=== PATIENT | male | born 1955 | race Caucasian/White ===

== ENCOUNTER 2022-12-25 13:18 | Inpatient (IN) | payer MEDICARE ==
[~2022-12-25] VITALS: Ht 180.3 cm; Wt 69.0 kg
[2022-12-25] MEDS ORDERED: CARV12.5 PO (14:34)
[2022-12-25] MEDS ORDERED: LOSA50TA28 PO (14:34)
[2022-12-25] MEDS ORDERED: AMIO200T49 PO (14:34)
[2022-12-25 17:32] LABS: BASO % 0.2 % (0.0-1.0); EOS # 0.8 10^3/uL (0.0-0.5); EOS % 9.2 % (0.0-3.0); HEMATOCRIT 37.4 % (42.0-52.0); HEMOGLOBIN 12.6 g/dl (13.5-17.5); LYMPH # 1.1 10^3/uL (1.5-5.0); LYMPH % 13.5 % (24.0-44.0); MEAN CORPUSCULAR HEMOGLOBIN 30.4 pg (27.0-33.0); MEAN CORPUSCULAR HGB CONC 33.7 g/dl (32.0-36.5); MEAN CORPUSCULAR VOLUME 90.3 fl (80.0-96.0); MONO # 0.6 10^3/uL (0.0-0.8); MONO % 7.5 % (2.0-8.0); NEUTROPHILS # 5.8 10^3/uL (1.5-8.5); NEUTROPHILS % 69.1 % (36.0-66.0); PLATELET COUNT, AUTOMATED 247 10^3/uL (150-450); RED BLOOD COUNT 4.14 10^6/uL (4.30-6.10); WHITE BLOOD COUNT 8.4 10^3/uL (4.0-10.0)
[2022-12-25 17:48] LABS: INR 1.02; PROTHROMBIN TIME 13.6 SECONDS (12.5-14.5)
[2022-12-25 17:50] LABS: LIPASE 133 U/L (12-53)
[2022-12-25 17:51] LABS: AMYLASE 106 U/L (30-118)
[2022-12-25 18:10] LABS: ALBUMIN 2.8 G/DL (3.2-5.2); ALKALINE PHOSPHATASE 1190 U/L (46-116); ALT/SGPT 390 U/L (7.0-40); AST/SGOT 260 U/L (<34); BILIRUBIN,DIRECT 5.5 MG/DL (<0.4); BILIRUBIN,TOTAL 7.5 MG/DL (0.3-1.2); BLOOD UREA NITROGEN 25 MG/DL (9-23); CALCIUM LEVEL 7.8 MG/DL (8.3-10.6); CARBON DIOXIDE LEVEL 30 MMOL/L (20-31); CHLORIDE LEVEL 99 MMOL/L (98-107); CREATININE FOR GFR 1.39 MG/DL (0.70-1.30); GLOMERULAR FILTRATION RATE 54.4 (>49); GLUCOSE, FASTING 98 MG/DL (74-106); POTASSIUM SERUM 3.2 MMOL/L (3.5-5.1); SODIUM LEVEL 137 MMOL/L (136-145); TOTAL PROTEIN 6.8 G/DL (5.7-8.2)
[2022-12-25] MEDS ORDERED: NS 1,000 ML IV ONE (18:10)
[2022-12-25 18:20] LABS: PARTIAL THROMBOPLASTIN TIME 30.7 SECONDS (24.8-34.2)
[2022-12-25 19:02] LABS: HEPATITIS C VIRUS ABY INDEX 0.16 INDEX (<0.8)
[2022-12-25 19:03] LABS: HEPATITIS B CORE ANTIBODY IGM NEGATIVE (NEGATIVE)
[2022-12-25 19:08] LABS: CPK CREATINE PHOSPHOKINASE 65 U/L (46-171); FERRITIN 824.2 NG/ML (10.5-307.3); IRON (FE) 94 UG/DL (65-175); PERCENT SATURATION 36.3 % (19.7-50.0); TOTAL IRON BINDING CAPACITY 259 UG/DL (250-425); VITAMIN B12 LEVEL > 2000 PG/ML (211-911)
[2022-12-25] MEDS ORDERED: ISOVUE-370 76% 100ML VIAL As Ordered ONE (19:36)
[2022-12-25] MEDS ORDERED: PROHANCE 279.3MG/ML 15ML VIAL As Ordered ONE (21:13)
[2022-12-26] MEDS ORDERED: POTASSIUM CHLORIDE 10MEQ SR TABLET PO ONE (01:50)
[2022-12-26] MEDS ORDERED: ZINC220CA PO (02:53)
[2022-12-26] MEDS ORDERED: OXYC1TAB23 PO (02:53)
[2022-12-26] MEDS ORDERED: COQ1200C PO (02:53)
[2022-12-26] MEDS ORDERED: L-GL500T5 PO (02:53)
[2022-12-26] MEDS ORDERED: B-122500 PO (02:53)
[2022-12-26] MEDS ORDERED: VITA400C83 PO (02:53)
[2022-12-26] MEDS ORDERED: FERR325T18 PO (02:53)
[2022-12-26] MEDS ORDERED: VITA100T14 PO (02:53)
[2022-12-26] MEDS ORDERED: ASPI1TAB23 PO (02:53)
[2022-12-26] MEDS ORDERED: VITA80004 PO (02:53)
[2022-12-26] MEDS ORDERED: [UNRECOGNIZED DRUG - OTHER] PO (02:53)
[2022-12-26] MEDS ORDERED: C 50TAB PO (02:53)
[2022-12-26] MEDS ORDERED: ESSE250T PO (02:53)
[2022-12-26] MEDS ORDERED: LUTE20TA2 PO (02:53)
[2022-12-26] MEDS ORDERED: ASTA4CAP PO (02:53)
[2022-12-26] MEDS ORDERED: VITA200032 PO (02:53)
[2022-12-26] MEDS ORDERED: ARGI500T PO (02:53)
[2022-12-26] MEDS ORDERED: HOME MED LIST COMPLETE! XX SCH (02:55)
[2022-12-26] MEDS ORDERED: PERCOCET 5MG/325MG TAB PO PRN (03:00)
[2022-12-26 05:26] LABS: HEMATOCRIT 34.4 % (42.0-52.0); HEMOGLOBIN 11.7 g/dl (13.5-17.5); MEAN CORPUSCULAR HEMOGLOBIN 30.6 pg (27.0-33.0); MEAN CORPUSCULAR VOLUME 90.1 fl (80.0-96.0); PLATELET COUNT, AUTOMATED 216 10^3/uL (150-450); RED BLOOD COUNT 3.82 10^6/uL (4.30-6.10); WHITE BLOOD COUNT 9.1 10^3/uL (4.0-10.0)
[2022-12-26 05:43] LABS: INR 1.07; PROTHROMBIN TIME 14.1 SECONDS (12.5-14.5)
[2022-12-26] MEDS: HEPARIN SOD (PORCINE) 5000UNITS/ML 1ML VIAL/SYRINGE SC SCH ×3 (06:00→20:39)
[2022-12-26 06:19] LABS: ALBUMIN 2.4 G/DL (3.2-5.2); ALKALINE PHOSPHATASE 1141 U/L (46-116); ALT/SGPT 426 U/L (7.0-40); AST/SGOT 343 U/L (<34); BILIRUBIN,TOTAL 7.6 MG/DL (0.3-1.2); BLOOD UREA NITROGEN 24 MG/DL (9-23); CALCIUM LEVEL 7.4 MG/DL (8.3-10.6); CARBON DIOXIDE LEVEL 25 MMOL/L (20-31); CHLORIDE LEVEL 103 MMOL/L (98-107); CREATININE FOR GFR 1.25 MG/DL (0.70-1.30); GLOMERULAR FILTRATION RATE > 60.0 (>49); GLUCOSE, FASTING 106 MG/DL (74-106); MAGNESIUM LEVEL 1.9 MG/DL (1.8-2.4); POTASSIUM SERUM 3.1 MMOL/L (3.5-5.1); SODIUM LEVEL 139 MMOL/L (136-145)
[2022-12-26] MEDS: ASPIRIN ENTERIC 325MG TAB PO SCH (11:47)
[2022-12-26] MEDS: CARVedilol 12.5 MG TAB PO SCH ×2 (11:48→20:43)
[2022-12-26 12:17] VITALS: BP 157/68; TEMP 97.6; O2SAT 98
[2022-12-26] MEDS: LR 1,000 ML IV SCH (12:25)
[2022-12-26] MEDS: KCL 10MEQ/100ML SWI (KRUN) 10 MEQ in IV 1 EA IV SCH ×4 (12:26→16:04)
[2022-12-26 14:13] VITALS: BP 123/58; TEMP 98.8; O2SAT 100
[2022-12-26 16:35] VITALS: BP 126/81; TEMP 98.8; O2SAT 98
[2022-12-26 20:43] VITALS: BP 133/64; TEMP 98.1; O2SAT 92
[2022-12-27] MEDS: LR 1,000 ML IV SCH ×2 (01:01→06:02)
[2022-12-27] MEDS: HEPARIN SOD (PORCINE) 5000UNITS/ML 1ML VIAL/SYRINGE SC SCH ×3 (05:09→21:11)
[2022-12-27 05:15] VITALS: BP 134/65; TEMP 98.8; O2SAT 98
[2022-12-27 05:58] LABS: BASO % 0.4 % (0.0-1.0); EOS % 11.7 % (0.0-3.0); HEMATOCRIT 33.2 % (42.0-52.0); HEMOGLOBIN 10.9 g/dl (13.5-17.5); LYMPH # 1.1 10^3/uL (1.5-5.0); LYMPH % 13.5 % (24.0-44.0); MEAN CORPUSCULAR HEMOGLOBIN 30.1 pg (27.0-33.0); MEAN CORPUSCULAR HGB CONC 32.8 g/dl (32.0-36.5); MEAN CORPUSCULAR VOLUME 91.7 fl (80.0-96.0); MONO # 0.8 10^3/uL (0.0-0.8); MONO % 9.9 % (2.0-8.0); NEUTROPHILS # 5.4 10^3/uL (1.5-8.5); NEUTROPHILS % 64.1 % (36.0-66.0); PLATELET COUNT, AUTOMATED 224 10^3/uL (150-450); RED BLOOD COUNT 3.62 10^6/uL (4.30-6.10); WHITE BLOOD COUNT 8.4 10^3/uL (4.0-10.0)
[2022-12-27 06:04] LABS: INR 1.07; PROTHROMBIN TIME 14.1 SECONDS (12.5-14.5)
[2022-12-27 06:33] LABS: ALBUMIN 2.1 G/DL (3.2-5.2); ALKALINE PHOSPHATASE 1226 U/L (46-116); ALT/SGPT 428 U/L (7.0-40); AST/SGOT 291 U/L (<34); BILIRUBIN,TOTAL 7.6 MG/DL (0.3-1.2); BLOOD UREA NITROGEN 20 MG/DL (9-23); CALCIUM LEVEL 7.7 MG/DL (8.3-10.6); CARBON DIOXIDE LEVEL 26 MMOL/L (20-31); CHLORIDE LEVEL 102 MMOL/L (98-107); CREATININE FOR GFR 1.16 MG/DL (0.70-1.30); GLOMERULAR FILTRATION RATE > 60.0 (>49); GLUCOSE, FASTING 100 MG/DL (74-106); MAGNESIUM LEVEL 1.9 MG/DL (1.8-2.4); POTASSIUM SERUM 3.8 MMOL/L (3.5-5.1); SODIUM LEVEL 136 MMOL/L (136-145); TOTAL PROTEIN 5.8 G/DL (5.7-8.2)
[2022-12-27] MEDS: ASPIRIN ENTERIC 325MG TAB PO SCH (08:31)
[2022-12-27] MEDS: CARVedilol 12.5 MG TAB PO SCH ×2 (08:34→21:00)
[2022-12-27] MEDS ORDERED: LOSARTAN 50MG TABLET PO SCH (09:00)
[2022-12-27] MEDS: LOSARTAN 25 MG TAB PO SCH (11:39)
[2022-12-27 14:00] VITALS: BP 152/70; TEMP 98.1; O2SAT 99
[2022-12-27 20:00] VITALS: BP 154/70; TEMP 98.1; O2SAT 99
[2022-12-28] MEDS: HEPARIN SOD (PORCINE) 5000UNITS/ML 1ML VIAL/SYRINGE SC SCH ×3 (05:01→20:08)
[2022-12-28 06:00] VITALS: BP 155/72; TEMP 98.6; O2SAT 96
[2022-12-28 06:06] LABS: BASO % 0.4 % (0.0-1.0); HEMATOCRIT 32.7 % (42.0-52.0); HEMOGLOBIN 11.2 g/dl (13.5-17.5); LYMPH # 1.2 10^3/uL (1.5-5.0); MEAN CORPUSCULAR HEMOGLOBIN 30.7 pg (27.0-33.0); MEAN CORPUSCULAR HGB CONC 34.3 g/dl (32.0-36.5); MEAN CORPUSCULAR VOLUME 89.6 fl (80.0-96.0); MONO # 0.8 10^3/uL (0.0-0.8); MONO % 10.1 % (2.0-8.0); NEUTROPHILS # 4.6 10^3/uL (1.5-8.5); NEUTROPHILS % 60.1 % (36.0-66.0); PLATELET COUNT, AUTOMATED 231 10^3/uL (150-450); RED BLOOD COUNT 3.65 10^6/uL (4.30-6.10); WHITE BLOOD COUNT 7.7 10^3/uL (4.0-10.0)
[2022-12-28 06:19] LABS: INR 1.01; PROTHROMBIN TIME 13.5 SECONDS (12.5-14.5)
[2022-12-28 06:58] LABS: ALBUMIN 2.1 G/DL (3.2-5.2); ALKALINE PHOSPHATASE 1191 U/L (46-116); ALT/SGPT 354 U/L (7.0-40); AST/SGOT 198 U/L (<34); BILIRUBIN,TOTAL 7.4 MG/DL (0.3-1.2); BLOOD UREA NITROGEN 15 MG/DL (9-23); CALCIUM LEVEL 7.6 MG/DL (8.3-10.6); CARBON DIOXIDE LEVEL 28 MMOL/L (20-31); CHLORIDE LEVEL 102 MMOL/L (98-107); CREATININE FOR GFR 0.99 MG/DL (0.70-1.30); GLOMERULAR FILTRATION RATE > 60.0 (>49); GLUCOSE, FASTING 113 MG/DL (74-106); MAGNESIUM LEVEL 1.7 MG/DL (1.8-2.4); POTASSIUM SERUM 4.1 MMOL/L (3.5-5.1); SODIUM LEVEL 136 MMOL/L (136-145); TOTAL PROTEIN 5.7 G/DL (5.7-8.2)
[2022-12-28] MEDS: ASPIRIN ENTERIC 325MG TAB PO SCH (08:16)
[2022-12-28] MEDS: CARVedilol 12.5 MG TAB PO SCH ×2 (08:16→20:08)
[2022-12-28] MEDS: LOSARTAN 25 MG TAB PO SCH (08:16)
[2022-12-28] MEDS ORDERED: MAGNESIUM OXIDE 400MG TAB (MAG-OX) PO ONE ×2 (13:50→21:00)
[2022-12-28 14:00] VITALS: BP 157/73; TEMP 98.1; O2SAT 99
[2022-12-28 20:00] VITALS: BP 165/81; TEMP 98.1; O2SAT 95
[2022-12-29] VITALS (7 sets, daily range): BP systolic 150–160; BP diastolic 70–79; TEMP 97.9–99.1; O2SAT 96–99
[2022-12-29] MEDS: HEPARIN SOD (PORCINE) 5000UNITS/ML 1ML VIAL/SYRINGE SC SCH ×3 (05:38→21:08)
[2022-12-29 06:09] LABS: BASO % 0.4 % (0.0-1.0); EOS # 1.2 10^3/uL (0.0-0.5); EOS % 13.4 % (0.0-3.0); HEMATOCRIT 34.6 % (42.0-52.0); HEMOGLOBIN 11.5 g/dl (13.5-17.5); LYMPH # 1.9 10^3/uL (1.5-5.0); LYMPH % 20.6 % (24.0-44.0); MEAN CORPUSCULAR HEMOGLOBIN 30.1 pg (27.0-33.0); MEAN CORPUSCULAR HGB CONC 33.2 g/dl (32.0-36.5); MEAN CORPUSCULAR VOLUME 90.6 fl (80.0-96.0); MONO # 0.8 10^3/uL (0.0-0.8); MONO % 8.6 % (2.0-8.0); NEUTROPHILS # 5.1 10^3/uL (1.5-8.5); NEUTROPHILS % 56.7 % (36.0-66.0); PLATELET COUNT, AUTOMATED 243 10^3/uL (150-450); RED BLOOD COUNT 3.82 10^6/uL (4.30-6.10)
[2022-12-29 06:21] LABS: INR 0.94; PROTHROMBIN TIME 12.8 SECONDS (12.5-14.5)
[2022-12-29 07:07] LABS: ALBUMIN 2.3 G/DL (3.2-5.2); ALKALINE PHOSPHATASE 1281 U/L (46-116); ALT/SGPT 399 U/L (7.0-40); AST/SGOT 210 U/L (<34); BLOOD UREA NITROGEN 12 MG/DL (9-23); CALCIUM LEVEL 8.2 MG/DL (8.3-10.6); CARBON DIOXIDE LEVEL 29 MMOL/L (20-31); CHLORIDE LEVEL 102 MMOL/L (98-107); CREATININE FOR GFR 0.99 MG/DL (0.70-1.30); GLOMERULAR FILTRATION RATE > 60.0 (>49); GLUCOSE, FASTING 88 MG/DL (74-106); POTASSIUM SERUM 4.7 MMOL/L (3.5-5.1); SODIUM LEVEL 137 MMOL/L (136-145); TOTAL PROTEIN 6.4 G/DL (5.7-8.2)
[2022-12-29] MEDS: CARVedilol 12.5 MG TAB PO SCH ×3 (09:00→20:38)
[2022-12-29] MEDS: ASPIRIN ENTERIC 325MG TAB PO SCH (09:00)
[2022-12-29 09:24] LABS: MAGNESIUM LEVEL 1.8 MG/DL (1.8-2.4)
[2022-12-29] MEDS: LOSARTAN 50MG TABLET PO SCH (09:24)
[2022-12-29] MEDS ORDERED: MAGNESIUM OXIDE 400MG TAB (MAG-OX) PO ONE ×2 (10:25→18:00)
[2022-12-29] MEDS ORDERED: LIDOCAINE 1% MDV 20ML VIAL As Ordered ONE (14:30)
[2022-12-30 05:24] VITALS: BP 148/77; TEMP 98.4; O2SAT 97
[2022-12-30] MEDS: HEPARIN SOD (PORCINE) 5000UNITS/ML 1ML VIAL/SYRINGE SC SCH ×3 (05:58→21:17)
[2022-12-30 06:24] LABS: BASO % 0.4 % (0.0-1.0); EOS % 10.1 % (0.0-3.0); HEMATOCRIT 32.2 % (42.0-52.0); HEMOGLOBIN 10.8 g/dl (13.5-17.5); LYMPH # 1.5 10^3/uL (1.5-5.0); LYMPH % 15.3 % (24.0-44.0); MEAN CORPUSCULAR HEMOGLOBIN 30.3 pg (27.0-33.0); MEAN CORPUSCULAR HGB CONC 33.5 g/dl (32.0-36.5); MEAN CORPUSCULAR VOLUME 90.4 fl (80.0-96.0); MONO # 1.1 10^3/uL (0.0-0.8); MONO % 11.4 % (2.0-8.0); NEUTROPHILS # 6.2 10^3/uL (1.5-8.5); NEUTROPHILS % 62.5 % (36.0-66.0); PLATELET COUNT, AUTOMATED 258 10^3/uL (150-450); RED BLOOD COUNT 3.56 10^6/uL (4.30-6.10); WHITE BLOOD COUNT 9.9 10^3/uL (4.0-10.0)
[2022-12-30 07:14] LABS: ALBUMIN 2.2 G/DL (3.2-5.2); ALKALINE PHOSPHATASE 1167 U/L (46-116); ALT/SGPT 342 U/L (7.0-40); AST/SGOT 150 U/L (<34); BILIRUBIN,TOTAL 3.6 MG/DL (0.3-1.2); BLOOD UREA NITROGEN 15 MG/DL (9-23); CALCIUM LEVEL 8.3 MG/DL (8.3-10.6); CARBON DIOXIDE LEVEL 26 MMOL/L (20-31); CHLORIDE LEVEL 101 MMOL/L (98-107); GLOMERULAR FILTRATION RATE > 60.0 (>49); GLUCOSE, FASTING 92 MG/DL (74-106); MAGNESIUM LEVEL 1.8 MG/DL (1.8-2.4); POTASSIUM SERUM 4.8 MMOL/L (3.5-5.1); SODIUM LEVEL 135 MMOL/L (136-145); TOTAL PROTEIN 6.2 G/DL (5.7-8.2)
[2022-12-30] MEDS: CARVedilol 12.5 MG TAB PO SCH ×2 (08:09→21:18)
[2022-12-30] MEDS: LOSARTAN 50MG TABLET PO SCH (08:09)
[2022-12-30] MEDS: ASPIRIN ENTERIC 325MG TAB PO SCH (08:09)
[2022-12-30 14:00] VITALS: BP 132/67; TEMP 98.8; O2SAT 100
[2022-12-30 21:00] VITALS: BP 150/76; TEMP 99.1; O2SAT 99
[2022-12-31] MEDS: HEPARIN SOD (PORCINE) 5000UNITS/ML 1ML VIAL/SYRINGE SC SCH (05:08)
[2022-12-31 05:25] VITALS: BP 152/77; TEMP 98.8; O2SAT 98
[2022-12-31 06:22] LABS: BASO # 0.1 10^3/uL (0.0-0.2); BASO % 0.6 % (0.0-1.0); EOS # 0.9 10^3/uL (0.0-0.5); EOS % 10.7 % (0.0-3.0); HEMATOCRIT 31.1 % (42.0-52.0); HEMOGLOBIN 10.2 g/dl (13.5-17.5); LYMPH # 1.5 10^3/uL (1.5-5.0); LYMPH % 17.4 % (24.0-44.0); MEAN CORPUSCULAR HEMOGLOBIN 29.8 pg (27.0-33.0); MEAN CORPUSCULAR HGB CONC 32.8 g/dl (32.0-36.5); MEAN CORPUSCULAR VOLUME 90.9 fl (80.0-96.0); MONO # 1.1 10^3/uL (0.0-0.8); MONO % 12.5 % (2.0-8.0); NEUTROPHILS % 58.6 % (36.0-66.0); PLATELET COUNT, AUTOMATED 251 10^3/uL (150-450); RED BLOOD COUNT 3.42 10^6/uL (4.30-6.10); WHITE BLOOD COUNT 8.5 10^3/uL (4.0-10.0)
[2022-12-31 07:26] LABS: ALBUMIN 2.1 G/DL (3.2-5.2); ALKALINE PHOSPHATASE 1028 U/L (46-116); ALT/SGPT 296 U/L (7.0-40); AST/SGOT 127 U/L (<34); BILIRUBIN,TOTAL 2.4 MG/DL (0.3-1.2); BLOOD UREA NITROGEN 17 MG/DL (9-23); CALCIUM LEVEL 7.9 MG/DL (8.3-10.6); CARBON DIOXIDE LEVEL 28 MMOL/L (20-31); CHLORIDE LEVEL 103 MMOL/L (98-107); CREATININE FOR GFR 1.02 MG/DL (0.70-1.30); GLOMERULAR FILTRATION RATE > 60.0 (>49); GLUCOSE, FASTING 98 MG/DL (74-106); MAGNESIUM LEVEL 1.8 MG/DL (1.8-2.4); POTASSIUM SERUM 5.1 MMOL/L (3.5-5.1); SODIUM LEVEL 134 MMOL/L (136-145); TOTAL PROTEIN 6.1 G/DL (5.7-8.2)
[2022-12-31] MEDS: ASPIRIN ENTERIC 325MG TAB PO SCH (08:14)
[2022-12-31 08:15] VITALS: BP 155/77
[2022-12-31] MEDS: CARVedilol 12.5 MG TAB PO SCH (08:15)
[2022-12-31] MEDS: LOSARTAN 50MG TABLET PO SCH (08:15)
[2022-12-31] MEDS ORDERED: CARV12.5 PO (09:45)
[2023-01-01 10:07] LABS: ANCA-ATYPICAL <1:20 titer (Neg:<1:20); ANTI-MITOCHONDRIAL ANTIBODY <20.0 Units (0.0-20.0); ANTINUCLEAR ANTIBODIES DIRECT Negative (Negative); CERULOPLASMIN 27.4 mg/dL (16.0-31.0); CYTOPLASMIC NEUTROP AB ANCA-C <1:20 titer (Neg:<1:20); EBV VIRAL CAPSID AG IgM <36.0 U/mL (0.0-35.9); LIVER-KIDNEY MICROSOMAL ABY <20.1 Units (0.0-20.0); PERINUCLEAR AB ANCA-P <1:20 titer (Neg:<1:20)
== END 2022-12-31 12:54 | disposition home or self-care (01) | DRG 442 ==
LOC: M ED 13:18 → M ED INP 23:55 → ENRESERV 12-26 10:33 → M MS4PR 12-26 12:11 → M MSPAV 12-26 16:36
PROVIDERS: ADMIT Internal Medicine; ATTEND Internal Medicine
PROC: 0FB23ZX Excision of Left Lobe Liver, Percutaneous Approach, Diagnostic (ICD-10-PCS; principal; 2022-12-29 12:00)
DX: K71.9 Toxic liver disease, unspecified (principal); K86.2 Cyst of pancreas; E87.6 Hypokalemia; R74.01 Elevation of levels of liver transaminase levels; E78.5 Hyperlipidemia, unspecified; I25.10 Atherosclerotic heart disease of native coronary artery without angina pectoris; I10 Essential (primary) hypertension; E78.00 Pure hypercholesterolemia, unspecified; E83.51 Hypocalcemia; R00.1 Bradycardia, unspecified; T46.2X5A Adverse effect of other antidysrhythmic drugs, initial encounter; Z79.82 Long term (current) use of aspirin; D50.9 Iron deficiency anemia, unspecified; Z79.899 Other long term (current) drug therapy; Z95.2 Presence of prosthetic heart valve; Z95.1 Presence of aortocoronary bypass graft

== ENCOUNTER → 2023-06-15 | Outpatient (CLI) | payer MEDICARE ==
[~2023-06-15] MED LIST: AMIO200T49 PO; ARGI500T PO; ASPI1TAB23 PO; ASTA4CAP PO; B-122500 PO; C 50TAB PO; CARV12.5 PO; COQ1200C PO; ESSE250T PO; FERR325T18 PO; L-GL500T5 PO; LOSA50TA28 PO; LUTE20TA2 PO; OXYC1TAB23 PO; PROHANCE 279.3MG/ML 15ML VIAL As Ordered ONE; VITA100T14 PO; VITA200032 PO; VITA400C83 PO; VITA80004 PO; ZINC220CA PO; [UNRECOGNIZED DRUG - OTHER] PO
[2023-06-15 09:39] LABS: BLOOD UREA NITROGEN 26 MG/DL (9-23); CREATININE FOR GFR 1.04 MG/DL (0.70-1.30); GLOMERULAR FILTRATION RATE > 60.0 (>49)
== END ==
LOC: M RAD 08:41
PROVIDERS: ATTEND Internal Medicine Gastroenterology
DX: D37.8 Neoplasm of uncertain behavior of other specified digestive organs (principal)
CPT/HCPCS: 36415; 74183; 82565; 84520; A9576